=== PATIENT | female | born 1955 | race Two or more races ===

== ENCOUNTER 2019-05-09 07:28 | Outpatient (CLI) | payer OTHER | END 2019-05-09 07:35 | disposition home or self-care (01) | LOC: NUCLEAR 07:28 | DX: C16.8 Malignant neoplasm of overlapping sites of stomach (principal); C16.2 Malignant neoplasm of body of stomach | CPT/HCPCS: 78816; A9552 ==

== ENCOUNTER 2020-01-04 09:02 | Outpatient (CLI) | payer OTHER | END 2020-01-04 09:11 | disposition home or self-care (01) | LOC: NUCLEAR 09:02 | DX: C16.2 Malignant neoplasm of body of stomach (principal); C78.7 Secondary malignant neoplasm of liver and intrahepatic bile duct; C78.6 Secondary malignant neoplasm of retroperitoneum and peritoneum | CPT/HCPCS: 78816; A9552 ==

== ENCOUNTER → 2020-05-13 13:13 | Outpatient (CLI) | payer OTHER | END | disposition home or self-care (01) | LOC: LAB 13:13 | PROVIDERS: ATTEND Radiology Diagnostic Radiology | DX: C16.2 Malignant neoplasm of body of stomach (principal) ==